=== PATIENT | female | born 1980 | race Caucasian/White ===

== ENCOUNTER → 2016-07-03 | Outpatient (REF) | payer OTHER | LOC: M SFHCPLAZ 10:18 | PROVIDERS: ATTEND Family Medicine | DX: E53.8 Deficiency of other specified B group vitamins (principal); R73.01 Impaired fasting glucose; E78.2 Mixed hyperlipidemia ==

== ENCOUNTER → 2016-07-08 | Outpatient (CLI) | payer OTHER ==
[2016-07-08 09:20] LABS: BASO % 0.5 % (0.0-1.0); EOS # 0.2 K/mm3 (0.0-0.50); EOS % 2.9 % (0.0-3.0); LARGE UNSTAINED CELL # 0.1 K/mm3 (0.0-0.4); LARGE UNSTAINED CELL % 1.6 % (0.0-4.0); LYMPH # 1.8 K/mm3 (1.5-4.5); LYMPH % 30.7 % (24.0-44.0); MEAN CORPUSCULAR HEMOGLOBIN 28.9 pg (27.0-33.0); MEAN CORPUSCULAR HGB CONC 32.9 g/dl (32.0-36.5); MEAN CORPUSCULAR VOLUME 87.6 fl (80.0-96.0); MONO # 0.3 K/mm3 (0.0-0.8); MONO % 4.8 % (0.0-5.0); NEUTROPHILS # 3.5 K/mm3 (1.8-7.7); NEUTROPHILS % 59.5 % (36.0-66.0); PLATELET COUNT, AUTOMATED 300 k/mm3 (150-450); RED CELL DISTRIBUTION WIDTH 13.6 % (11.5-14.5); WHITE BLOOD COUNT 5.8 K/mm3 (4.0-10.0)
[2016-07-08 09:55] LABS: ALBUMIN 3.7 GM/DL (3.2-5.2); ALBUMIN/GLOBULIN RATIO 1.28 (1.00-1.93); ALKALINE PHOSPHATASE 49 U/L (45-117); ALT/SGPT 22 U/L (12-78); ANION GAP 7 MEQ/L (8-16); AST/SGOT 11 U/L (15-37); BILIRUBIN,TOTAL 0.6 MG/DL (0.2-1.0); BLOOD UREA NITROGEN 10 MG/DL (7-18); CARBON DIOXIDE LEVEL 30 MEQ/L (21-32); CHLORIDE LEVEL 108 MEQ/L (98-107); CREATININE FOR GFR 1.07 MG/DL (0.55-1.02); FREE T4 1.22 NG/DL (0.76-1.46); GLOMERULAR FILTRATION RATE > 60.0 (>60); GLUCOSE, FASTING 103 MG/DL (70-105); POTASSIUM SERUM 4.3 MEQ/L (3.5-5.1); SODIUM LEVEL 145 MEQ/L (136-145); TOTAL PROTEIN 6.6 GM/DL (6.4-8.2)
[2016-07-08 11:08] LABS: THYROID PEROXIDASE ANTIBODY < 28.0 U/ML (<60.0); VITAMIN B12 LEVEL 1017 PG/ML (247-911)
== END ==
LOC: M WUC 08:31
PROVIDERS: ATTEND Family Medicine
DX: E53.8 Deficiency of other specified B group vitamins (principal); R73.01 Impaired fasting glucose

== ENCOUNTER → 2016-09-10 | Outpatient (REF) | payer OTHER | LOC: M SFHCWAGY 08:42 | PROVIDERS: ATTEND Nurse Practitioner Women's Health | DX: Z12.4 Encounter for screening for malignant neoplasm of cervix (principal) ==

== ENCOUNTER → 2017-09-13 | Outpatient (REF) | payer OTHER | LOC: M SFHCWAGY 08:47 | DX: Z12.4 Encounter for screening for malignant neoplasm of cervix (principal) ==

== ENCOUNTER → 2018-06-08 | Outpatient (CLI) | payer OTHER ==
[2018-06-08 12:42] LABS: BASO # 0.1 10^3/uL (0.0-0.2); BASO % 0.6 % (0.0-1.0); EOS # 0.2 10^3/uL (0.0-0.50); HEMATOCRIT 38.2 % (36.0-47.0); HEMOGLOBIN 12.6 g/dl (12.0-15.5); LYMPH # 1.8 10^3/uL (1.5-4.5); LYMPH % 21.8 % (24.0-44.0); MEAN CORPUSCULAR HEMOGLOBIN 28.9 pg (27.0-33.0); MEAN CORPUSCULAR VOLUME 87.6 fl (80.0-96.0); MONO # 0.5 10^3/uL (0.0-0.8); NEUTROPHILS # 5.8 10^3/uL (1.8-7.7); NEUTROPHILS % 69.4 % (36.0-66.0); PLATELET COUNT, AUTOMATED 340 10^3/uL (150-450); RED BLOOD COUNT 4.36 10^6/uL (4.00-5.40); WHITE BLOOD COUNT 8.3 10^3/uL (4.0-10.0)
[2018-06-08 13:34] LABS: ALBUMIN 3.5 GM/DL (3.2-5.2); ALT/SGPT 18 U/L (12-78); BILIRUBIN,TOTAL 0.5 MG/DL (0.2-1.0); BLOOD UREA NITROGEN 14 MG/DL (7-18); CALCIUM LEVEL 8.9 MG/DL (8.5-10.1); CARBON DIOXIDE LEVEL 26 MEQ/L (21-32); CHLORIDE LEVEL 107 MEQ/L (98-107); CHOLESTEROL LEVEL 149 MG/DL (<200); CHOLESTEROL RISK RATIO 3.547 (<5); CREATININE FOR GFR 0.85 MG/DL (0.55-1.30); GLOMERULAR FILTRATION RATE > 60.0 (>60); GLUCOSE, FASTING 95 MG/DL (70-100); HDL CHOLESTEROL 42 MG/DL (>40); LDL CHOLESTEROL 91 MG/DL (<100); MAGNESIUM LEVEL 2.1 MG/DL (1.8-2.4); NON-HDL-C 107 MG/DL; POTASSIUM SERUM 4.2 MEQ/L (3.5-5.1); PTH INTACT 39.2 PG/ML (18.5-88.0); SODIUM LEVEL 141 MEQ/L (136-145); TOTAL 25(OH) VITAMIN D 96.7 NG/ML (30.0-100.0); TOTAL PROTEIN 6.4 GM/DL (6.4-8.2); TRIGLYCERIDES LEVEL 78 MG/DL (<150)
[2018-06-08 13:35] LABS: VITAMIN B12 LEVEL 610 PG/ML (247-911)
[2018-06-08 13:36] LABS: FOLATE 8.1 NG/ML (>5.4)
[2018-06-08 14:10] LABS: HEMOGLOBIN A1c 5.6 %
== END ==
LOC: M WUC 09:18
PROVIDERS: ATTEND Nurse Practitioner Family
DX: R73.01 Impaired fasting glucose (principal); E53.8 Deficiency of other specified B group vitamins; I10 Essential (primary) hypertension

== ENCOUNTER → 2018-07-11 | Outpatient (REF) | payer OTHER | LOC: M SFHCLERA 19:36 | PROVIDERS: ATTEND Physician Assistant | DX: R50.9 Fever, unspecified (principal) ==

== ENCOUNTER → 2019-05-15 | Outpatient (REF) | payer OTHER ==
[2019-05-15 10:43] LABS: APPEARANCE, URINE HAZY (CLEAR); BACTERIA, URINE AUTO NEGATIVE (NEGATIVE); BILIRUBIN, URINE AUTO NEGATIVE (NEGATIVE); BLOOD, URINE BLOOD 3+ (NEGATIVE); COLOR, URINE YELLOW (YELLOW); GLUCOSE, URINE (UA) AUTO NEGATIVE (NEGATIVE); KETONE, URINE AUTO NEGATIVE (NEGATIVE); LEUKOCYTE ESTERASE, URINE AUTO NEGATIVE (NEGATIVE); MUCUS, URINE SMALL (NEGATIVE); NITRITE, URINE AUTO NEGATIVE (NEGATIVE); PROTEIN, URINE AUTO NEGATIVE (NEGATIVE); RBC, URINE AUTO 43 /HPF (0-3); SPECIFIC GRAVITY URINE AUTO 1.024 (1.002-1.035); SQUAMOUS EPITHELIAL CELL UR AU 1 /HPF (0-6); UROBILINOGEN, URINE AUTO 0.2 mg/dL (0.0-2.0); WBC, URINE AUTO 0 /HPF (0-3)
[2019-05-15 10:48] LABS: ALBUMIN 3.7 GM/DL (3.2-5.2); ALT/SGPT 19 U/L (12-78); BILIRUBIN,TOTAL 0.5 MG/DL (0.2-1.0); BLOOD UREA NITROGEN 15 MG/DL (7-18); CARBON DIOXIDE LEVEL 31 MEQ/L (21-32); CHLORIDE LEVEL 109 MEQ/L (98-107); CREATININE FOR GFR 0.89 MG/DL (0.55-1.30); GLOMERULAR FILTRATION RATE > 60.0 (>58); GLUCOSE, FASTING 100 MG/DL (70-100); POTASSIUM SERUM 4.4 MEQ/L (3.5-5.1); SODIUM LEVEL 144 MEQ/L (136-145)
[2019-05-15 11:01] LABS: PTH INTACT 75.6 PG/ML (18.5-88.0); TOTAL 25(OH) VITAMIN D 80.5 NG/ML (30.0-100.0)
[2019-05-15 11:19] LABS: MALB URINE SIEMENS 12.6 MG/L
[2019-05-15 11:50] LABS: HEMOGLOBIN A1c 6.1 %
== END ==
LOC: M SFHCPLAZ 08:50
PROVIDERS: ATTEND Family Medicine
DX: I10 Essential (primary) hypertension (principal); R73.01 Impaired fasting glucose; E55.9 Vitamin D deficiency, unspecified

== ENCOUNTER → 2019-05-20 | Outpatient (CLI) | payer OTHER ==
--- NOTE | 2019-05-21 11:46 | ECHO ---
DATE OF STUDY: 05/19/2019 DATE OF : 1980 REFERRING PHYSICIAN: Dr. Ozzy Lew INDICATION: Cardiac murmur unspecified. HEIGHT: 160 cm. WEIGHT: 118.8 kg. 2-D MEASUREMENTS: Aortic annulus: 2.2 cm Left atrium: 3.4 cm Aortic root: 2.4 cm Ventricular septum: 1.11 cm Posterior wall: 1.11 cm Left ventricle diastole: 5.0 cm Left ventricle systole: 3.2 cm Inferior vena cava: 1.5 cm DOPPLER MEASUREMENTS: Aortic valve velocity: 164 cm/sec LVOT velocity: 129 cm/sec LVOT VTI: 31.4 cm No aortic regurgitation Trace mitral regurgitation Mitral E velocity: 93.1 cm/sec Mitral A velocity: 48.1 cm/sec Mitral deceleration time: 211 ms Very mild tricuspid regurgitation Estimated right ventricular systolic pressure 25-30 mmHg assuming a right atrial pressure of 5-10 mmHg Pulmonary artery systolic pressure: 20 mmHg No pulmonic regurgitation MITRAL ANNULAR TISSUE DOPPLER: E prime septal: 7.70 cm/sec E prime lateral: 9.65 cm/sec DESCRIPTION: The rhythm was sinus bradycardia. Image quality was fair. No pericardial effusion. This was a 2-D, M-mode, color flow Doppler and pulse wave Doppler examination and included mitral annular tissue Doppler. CONCLUSIONS: 1. Normal echocardiogram Doppler. 2. Normal left ventricle internal dimensions and wall thickness. Normal regional LV wall motion and wall thickening. Normal LV systolic function. LVEF 65% by visual estimate. Normal LV diastolic function. 3. Structurally and functionally normal cardiac valves.
== END ==
LOC: M CARPUL 08:00
PROVIDERS: ATTEND Family Medicine
DX: R01.1 Cardiac murmur, unspecified (principal)

== ENCOUNTER → 2019-06-30 | Outpatient (CLI) | payer OTHER, SELFPAY ==
--- NOTE | 2019-06-30 09:23 | REP ---
BILATERAL SCREENING DIGITAL MAMMOGRAM WITH 3D TOMOSYNTHESIS: There are no palpable abnormalities or other breast complaints. The the patient states she has not had a clinical breast examination in over a year. The Tyrer-Cuzick Score is: 10.2% . There are no comparisons, baseline examination. There are scattered areas of fibroglandular density. There is no dominant mass, micro calcific cluster or architectural distortion that would indicate malignancy. There are no additional findings on 3D tomosynthesiss. Impression: BIRADS/ACR category 1 mammogram. Negative. Recommendation: Routine annual screening mammography. This mammogram was interpreted with the aid of a FDA approved computer-aided detection system. A. Negative mammogram reports should not delay biopsy if a dominant or clinically suspicious mass is present. B. Not all breast cancers are identified by mammography or tomosynthesis. C. Adenosis and dense breasts may obscure an underlying neoplasm. Patient letter M1. Electronically Signed by Tab Sow MD 06/30/2019 09:15 A
== END ==
LOC: M WHC 07:59
PROVIDERS: ATTEND Family Medicine
DX: Z12.31 Encounter for screening mammogram for malignant neoplasm of breast (principal)

== ENCOUNTER → 2020-04-02 | Outpatient (CLI) | payer OTHER ==
[2020-04-02 08:33] LABS: BASO # 0.1 10^3/uL (0.0-0.2); BASO % 1.1 % (0.0-1.0); EOS # 0.2 10^3/uL (0.0-0.5); EOS % 2.9 % (0.0-3.0); HEMATOCRIT 41.4 % (36.0-47.0); HEMOGLOBIN 13.4 g/dl (12.0-15.5); LYMPH # 1.5 10^3/uL (1.5-5.0); LYMPH % 27.1 % (24.0-44.0); MEAN CORPUSCULAR HEMOGLOBIN 29.3 pg (27.0-33.0); MEAN CORPUSCULAR HGB CONC 32.4 g/dl (32.0-36.5); MEAN CORPUSCULAR VOLUME 90.6 fl (80.0-96.0); MONO # 0.4 10^3/uL (0.0-0.8); MONO % 7.5 % (0.0-5.0); NEUTROPHILS # 3.4 10^3/uL (1.5-8.5); NEUTROPHILS % 61.2 % (36.0-66.0); PLATELET COUNT, AUTOMATED 335 10^3/uL (150-450); RED BLOOD COUNT 4.57 10^6/uL (4.00-5.40); WHITE BLOOD COUNT 5.6 10^3/uL (4.0-10.0)
[2020-04-02 09:03] LABS: ALBUMIN 3.8 GM/DL (3.2-5.2); ALT/SGPT 20 U/L (12-78); BILIRUBIN,TOTAL 0.5 MG/DL (0.2-1.0); BLOOD UREA NITROGEN 9 MG/DL (7-18); CARBON DIOXIDE LEVEL 28 MEQ/L (21-32); CHLORIDE LEVEL 110 MEQ/L (98-107); CHOLESTEROL LEVEL 149 MG/DL (<200); CHOLESTEROL RISK RATIO 3.725 (<5); CREATININE FOR GFR 0.96 MG/DL (0.55-1.30); GLOMERULAR FILTRATION RATE > 60.0 (>58); GLUCOSE, FASTING 104 MG/DL (70-100); HDL CHOLESTEROL 40 MG/DL (>40); LDL CHOLESTEROL 85 MG/DL (<100); MAGNESIUM LEVEL 2.2 MG/DL (1.8-2.4); NON-HDL-C 109 MG/DL; POTASSIUM SERUM 4.2 MEQ/L (3.5-5.1); SODIUM LEVEL 143 MEQ/L (136-145); TOTAL PROTEIN 6.7 GM/DL (6.4-8.2); TRIGLYCERIDES LEVEL 119 MG/DL (<150)
[2020-04-02 09:55] LABS: VITAMIN B12 LEVEL 1524 PG/ML (247-911)
[2020-04-02 10:27] LABS: HEMOGLOBIN A1c 5.8 %
== END ==
LOC: M LAB 08:01
PROVIDERS: ATTEND Family Medicine
DX: E53.8 Deficiency of other specified B group vitamins (principal); E78.2 Mixed hyperlipidemia; R73.01 Impaired fasting glucose; I10 Essential (primary) hypertension

== ENCOUNTER → 2021-12-02 | Outpatient (CLI) | payer OTHER | LOC: M WHC 07:28 | PROVIDERS: ATTEND Family Medicine | DX: Z12.31 Encounter for screening mammogram for malignant neoplasm of breast (principal) ==

== ENCOUNTER → 2022-06-13 | Outpatient (REF) | payer OTHER | LOC: M SFHCPLAZ 12:38 | PROVIDERS: ATTEND Family Medicine | DX: D50.9 Iron deficiency anemia, unspecified (principal) ==

== ENCOUNTER 2022-06-19 07:22 | Outpatient (CLI) | payer OTHER ==
[~2022-06-19] VITALS: Ht 160 cm; Wt 125.0 kg
[~2022-06-19 07:22] MED LIST: ALBUTEROL SULFATE 2.5MG/0.5ML INH NEB SOLN INH PRN; EPINEPHrine INJ 1 MG/ML 1ML AMP IM PRN; NS 1,000 ML IV ONE; diphenhydrAMINE 50MG/ML VIAL IV PRN; methylPREDNISolone 125MG 2ML VIAL IV PRN
[2022-06-19] MEDS ORDERED: IRON SUCROSE 500 MG in NS 250 ML OVER 4 HRS IV ONE (07:30)
[2022-06-19] MEDS ORDERED: MAGN250T7 PO (07:54)
[2022-06-19] MEDS ORDERED: BISO10TA14 PO (07:54)
[2022-06-19] MEDS ORDERED: METF-817 PO (07:54)
[2022-06-19] MEDS ORDERED: FERR32TA PO (07:54)
[2022-06-19] MEDS ORDERED: TRUL0.5I SC (07:54)
[2022-06-19 08:00] VITALS: BP 140/89
[2022-06-19 09:00] VITALS: BP 118/64
[2022-06-19 10:15] VITALS: BP 143/87
[2022-06-19 12:50] VITALS: BP 133/56
== END 2022-06-19 12:50 | disposition home or self-care (01) ==
LOC: M INFU 07:22
PROVIDERS: ATTEND Family Medicine
DX: D50.9 Iron deficiency anemia, unspecified (principal)

== ENCOUNTER 2022-07-01 09:10 | Outpatient (CLI) | payer OTHER ==
[~2022-07-01] VITALS: Ht 160 cm; Wt 110.5 kg
[2022-07-01 09:10] VITALS: BP 116/62
[~2022-07-01 09:10] MED LIST changes: +BISO10TA14 PO; +FERR32TA PO; +IRON SUCROSE 500 MG in NS 250 ML OVER 4 HRS IV ONE; +MAGN250T7 PO; +METF-817 PO; +TRUL0.5I SC
[2022-07-01 10:00] VITALS: BP 118/73
[2022-07-01 11:00] VITALS: BP 121/65
[2022-07-01 12:00] VITALS: BP 118/64
[2022-07-01 13:00] VITALS: BP 120/70
[2022-07-01 13:50] VITALS: BP 118/74
== END 2022-07-01 13:50 | disposition home or self-care (01) ==
LOC: M INFU 09:10
PROVIDERS: ATTEND Family Medicine
DX: D50.9 Iron deficiency anemia, unspecified (principal)
CPT/HCPCS: 96365; 96366; J1756

== ENCOUNTER → 2022-07-02 | Outpatient (CLI) | payer OTHER ==
[~2022-07-02] MED LIST changes: -ALBUTEROL SULFATE 2.5MG/0.5ML INH NEB SOLN INH PRN; -EPINEPHrine INJ 1 MG/ML 1ML AMP IM PRN; -IRON SUCROSE 500 MG in NS 250 ML OVER 4 HRS IV ONE; -NS 1,000 ML IV ONE; -diphenhydrAMINE 50MG/ML VIAL IV PRN; -methylPREDNISolone 125MG 2ML VIAL IV PRN
== END ==
LOC: M SLEEP HO 12:11
PROVIDERS: ATTEND Family Medicine
DX: G47.33 Obstructive sleep apnea (adult) (pediatric) (principal)

== ENCOUNTER → 2022-11-05 | Outpatient (REF) | payer OTHER | LOC: M SFHCWAGY 13:42 | PROVIDERS: ATTEND Nurse Practitioner Family | DX: Z12.4 Encounter for screening for malignant neoplasm of cervix (principal) | CPT/HCPCS: 87624; G0123 ==

== ENCOUNTER 2022-11-13 06:32 | Outpatient (CLI) | payer OTHER ==
[~2022-11-13] VITALS: Ht 160 cm; Wt 112.7 kg
[2022-11-13] MEDS ORDERED: IRON SUCROSE 500 MG in NS 250 ML OVER 4 HRS IV ONE (07:00)
[2022-11-13] MEDS ORDERED: NS 1,000 ML IV SCH (07:00)
[2022-11-13] MEDS ORDERED: diphenhydrAMINE 50MG/ML VIAL IV PRN (07:01)
[2022-11-13] MEDS ORDERED: EPINEPHrine INJ 1 MG/ML 1ML AMP IM PRN (07:01)
[2022-11-13] MEDS ORDERED: ALBUTEROL SULFATE 2.5MG/0.5ML INH NEB SOLN INH PRN (07:01)
[2022-11-13] MEDS ORDERED: methylPREDNISolone 125MG 2ML VIAL IV PRN (07:01)
[2022-11-13 07:04] VITALS: BP 159/74; O2SAT 97
[2022-11-13 08:30] VITALS: BP 141/73; O2SAT 100
[2022-11-13 09:30] VITALS: BP 138/83; O2SAT 99
[2022-11-13 11:45] VITALS: BP 119/70; O2SAT 97
== END 2022-11-13 11:45 | disposition home or self-care (01) ==
LOC: M INFU 06:32
PROVIDERS: ATTEND Family Medicine
DX: D50.9 Iron deficiency anemia, unspecified (principal)
CPT/HCPCS: 96365; 96366; J1756

== ENCOUNTER → 2023-01-07 | Outpatient (REF) | payer OTHER | LOC: M SFHCPLAZ 10:04 | PROVIDERS: ATTEND Family Medicine | DX: R19.7 Diarrhea, unspecified (principal) ==

== ENCOUNTER → 2023-03-11 | Outpatient (CLI) | payer OTHER | LOC: M RAD 06:45 | PROVIDERS: ATTEND Family Medicine | DX: K86.81 Exocrine pancreatic insufficiency (principal) ==